=== PATIENT | male | born 1995 | race Caucasian/White ===

== ENCOUNTER → 2018-06-16 | Outpatient (CLI) | payer BC ==
[~2018-06-16] MED LIST: ACYCLOVIR 400400 MG PO; LIDOCAINE VISC100 M1 MM; PROTONIX40 M1 PO; PUMP; ZIANA GEL30 GM TOP
== END ==
LOC: RAD 14:59
DX: R92.2 Inconclusive mammogram (principal)